=== PATIENT | female | born 1965 | race Caucasian/White ===

== ENCOUNTER 2018-04-21 15:16 | Emergency (ER) | payer OTHER ==
[~2018-04-21] VITALS: Ht 162.6 cm; Wt 67.0 kg
[~2018-04-21 15:16] MED LIST: DIPH25CA61 PO; LORA-446 PO; LORA10TA62 PO; MULT-6 PO; OMEP20TA9 PO; ONDA4TAB13 SL; OXYB5TAB7 PO; PROM12.554 PR
[2018-04-21] MEDS ORDERED: PLEASE ENTER HEIGHT AND WEIGHT MC SCH (15:30)
[2018-04-21] MEDS ORDERED: SODIUM CHLORIDE FLUSH 10ML SYR IVF ONE (15:30)
[2018-04-21] MEDS ORDERED: MORPHINE SULFATE 4 MG/ML, 1ML IVPush PRN (15:30)
[2018-04-21] MEDS ORDERED: SODIUM CHLORIDE 0.9% 1,000ML IVBOLUS ONE (15:30)
[2018-04-21 15:37] LABS: BASOPHILS # (AUTO) 0.03 x10^3/uL (0-0.1); BASOPHILS % (AUTO) 1 % (0-1); EOSINOPHILS % (AUTO) 2 % (1-7); LYMPHOCYTES # (AUTO) 1.68 x10^3/uL (1-3.4); LYMPHOCYTES % (AUTO) 28 % (22-44); MD NO; MEAN CORPUSCULAR HEMOGLOBIN 30.3 pg (27.0-34.8); MEAN CORPUSCULAR HGB CONC 33.2 g/dL (32.4-35.8); MEAN CORPUSCULAR VOLUME 91.5 fL (80-100); MEAN PLATELET VOLUME 8.8 fL (7.4-10.4); MONOCYTES # (AUTO) 0.41 x10^3/uL (0.2-0.8); MONOCYTES % (AUTO) 7 % (2-9); NEUTROPHILS # (AUTO) 3.77 x10^3/uL (1.8-6.8); NEUTROPHILS % (AUTO) 63 % (42-75); PLATELET COUNT 207 x10^3/uL (130-400); RED BLOOD COUNT 3.99 x10^6/uL (3.82-5.3); RED CELL DISTRIBUTION WIDTH 13.4 % (9.6-15.2)
[2018-04-21 15:49] LABS: ALBUMIN 3.6 g/dL (3.4-5.0); ANION GAP 9 mmol/L (5-15); CALCIUM 8.6 mg/dL (8.5-10.1); CHLORIDE 113 mmol/L (98-107); CREATININE 1.05 mg/dL (0.55-1.02)
[2018-04-21] MEDS ORDERED: MORPHINE SULFATE 4 MG/ML, 1ML ONE (15:54)
[2018-04-21] MEDS ORDERED: MIDAZOLAM 1 MG/ML, 2ML ONE (16:48)
[2018-04-21] MEDS ORDERED: DIPH,PERTUSS(ACELL),TET VAC/PF 0.5 ML IM-VACC ONE (17:00)
[2018-04-21] MEDS ORDERED: SODIUM CHLORIDE 0.9% 1,000 ML IV ONE (17:00)
[2018-04-21] MEDS ORDERED: CEFAZOLIN PMX 2GM/50ML 50 ML IV ONE (17:00)
[2018-04-21 17:09] VITALS: BP 103/70
[2018-04-21] MEDS ORDERED: DEXAMETHASONE 4 MG/ML, 1ML ONE (17:32)
[2018-04-21] MEDS ORDERED: CEFAZOLIN 1,000 MG ONE (17:32)
[2018-04-21] MEDS ORDERED: ONDANSETRON 2MG/ML, 2ML ONE (17:32)
[2018-04-21] MEDS ORDERED: PROPOFOL 10 MG/ML, 20ML ONE (17:32)
[2018-04-21] MEDS ORDERED: ROCURONIUM 10 MG/ML,10ML ONE (17:32)
[2018-04-21] MEDS ORDERED: SUCCINYLCHOLINE 20 MG/ML, 10ML ONE (17:32)
[2018-04-21] MEDS ORDERED: BUPIVACAINE/PF 0.25% ONE (17:50)
[2018-04-21] MEDS ORDERED: BUPIVACAINE/PF-EPI 0.25% 1:200K IM ONE (17:50)
[2018-04-21] MEDS ORDERED: EPINEPHRINE 1 MG/ML, 1ML ONE (17:50)
[2018-04-21] MEDS ORDERED: OXYcodone 5 MG/5 ML ORAL.SOL UDC PO PRN (18:30)
[2018-04-21] MEDS ORDERED: ONDANSETRON 2MG/ML, 2ML IVPush PRN (18:30)
[2018-04-21] MEDS ORDERED: hydrALAzine 20 MG/ML, 1ML IV PRN (18:30)
[2018-04-21] MEDS ORDERED: HYDROmorphone 1 MG/ML, 1ML IV PRN (18:30)
[2018-04-21] MEDS ORDERED: LABETALOL 5MG/ML, 20ML IV PRN (18:30)
[2018-04-21] MEDS ORDERED: MEPERIDINE/PF 25MG/0.5ML IVPush PRN (18:30)
[2018-04-21] MEDS ORDERED: KETOROLAC 30 MG/1 ML IV PRN (18:30)
[2018-04-21] MEDS ORDERED: ALBUTEROL SULFATE 2.5 MG/3 ML NPPB PRN (18:30)
[2018-04-21] MEDS ORDERED: FENTANYL PF 100 MCG/2ML IV PRN (18:30)
[2018-04-21] MEDS ORDERED: METOCLOPRAMIDE 5 MG/ML, 2ML IV PRN (18:30)
[2018-04-21] MEDS ORDERED: PROMETHAZINE 25 MG/ML, 1ML IV PRN (18:30)
[2018-04-21] MEDS ORDERED: ACETAMINOPHEN 650 MG/20.3 ML UDC ONE (19:24)
[2018-04-21] MEDS ORDERED: MEPERIDINE/PF 50 MG/ML ONE (19:24)
[2018-04-21] MEDS ORDERED: OXYcodone 5 MG/5 ML ORAL.SOL UDC ONE ×2 (19:25→19:28)
[2018-04-21] MEDS ORDERED: ACETAMINOPHEN 325 MG TABLET PO ONE (20:00)
[2018-04-21] MEDS ORDERED: HYDR-3240 PO (20:03)
[2018-04-21] MEDS ORDERED: MELO15TA24 PO (20:04)
[2018-04-21] MEDS ORDERED: SENN8.6T98 PO (20:05)
[2018-04-21] MEDS ORDERED: FENTANYL PF 100 MCG/2ML ONE (21:31)
== END 2018-04-21 21:00 | disposition home or self-care (01) ==
LOC: ED 16:46 → 4NOR 19:59 → ED 21:00
DX: S52.572B Other intraarticular fracture of lower end of left radius, initial encounter for open fracture type I or II (principal); S52.602B Unspecified fracture of lower end of left ulna, initial encounter for open fracture type I or II; I10 Essential (primary) hypertension; K21.9 Gastro-esophageal reflux disease without esophagitis; F17.200 Nicotine dependence, unspecified, uncomplicated; Z90.49 Acquired absence of other specified parts of digestive tract; W18.39XA Other fall on same level, initial encounter; Y93.55 Activity, bike riding; Y92.488 Other paved roadways as the place of occurrence of the external cause; Y99.8 Other external cause status
CPT/HCPCS: 24675; 25607; 36415; 71045; 73100; 73110; 76001; 80048; 82040; 85025; 93005; 96361; 96365; 96372; 96375; 99285; C1713; J0171; J0330; J0690; J1100; J2175; J2250; J2405; J2704; J3010; J3490; J7030